=== PATIENT | female | born 1985 | race Caucasian/White ===

== ENCOUNTER 2020-08-24 21:50 | Emergency (ER) | payer MEDICARE, OTHER ==
[~2020-08-24 21:50] MED LIST: AZITHROMYCIN250 MG PO; CERTAGEN1 EACH PO; CIPRO500 MG PO; COLACE CLEAR50 MG PO; ERY-TAB250 MG PO; FEOSOL325 MG PO; FIORICET1 EACH PO; FOLIC ACID1 MG PO; HYDROXYZINE HCL50 MG PO; LOTRIMIN AF24 GM TOP; MAGNESIUM250 M1 PO; METRONIDAZOLE500 MG PO; NEURONTIN300 MG PO; NIACIN250 M1 PO; NYSTATIN-TRIAMC30 GM TOP; ONDANSETRON ODT4 MG PO; PREDNISONE 20MG20 MG PO; PREDNISONE5 M1 PO; PROTONIX 40MG T40 MG PO; PROVENTIL HFA6.7 GM INH; PULMICORT FLEX90 MCG INH; REGLAN10 MG PO; ROBAXIN750 MG PO; ROBITUSSIN100 MG/5 M PO; SINGULAIR10 MG PO; SYMBICORT 1601 PUFFS INH; SYMBICORT 80-10.2 GM INH; TIZANIDINE HCL4 MG PO; VITAMIN D3 PO; VITAMIN D5000 UNIT PO; ZOLOFT100 MG PO; ZOLOFT50 MG PO
[2020-08-24 23:00] LABS: BASOPHIL 0.8 % (0-2); EOSINOPHIL 3.6 % (0-5); HCT 40.3 % (37.0-47.0); HGB 12.9 g/dl (12.5-16.0); LYMPHOCYTE 33.4 % (15-48); MCH 28.7 pg (25.0-31.0); MCV 89.6 fL (78.0-100.0); MONOCYTE 6.2 % (0-12); MPV 10.6 fL (6.0-9.5); NEUTROPHIL 55.8 % (41-80); NRBC 0; PLT 271 K/uL (150-400); WBC 8.5 K/uL (4.0-10.5)
[2020-08-24 23:04] LABS: BILIRUBIN NEGATIVE (NEGATIVE); BLOOD NEGATIVE Ery/uL (NEGATIVE); CLARITY CLEAR (CLEAR); COLOR YELLOW (YELLOW); GLUCOSE (U) NORMAL (NORMAL); LEUKOCYTES NEGATIVE Leu/uL (NEGATIVE); NITRITE NEGATIVE (NEGATIVE); PROTEIN NEGATIVE (NEGATIVE); SPECIFIC GRAVITY >=1.030 (1.001-1.030); UROBILINOGEN 0.2 mg/dL (0.2-1.0)
[2020-08-24 23:04] LABS: PROTHROMBIN TIME 12.5 SECONDS (11.4-13.6); PTT 25.4 SECONDS (22.2-34.7)
[2020-08-24 23:10] LABS: ALBUMIN 3.6 g/dL (3.4-5.0); BILIRUBIN - TOTAL 0.9 mg/dL (0.2-1.0); CREATININE 0.62 mg/dL (0.51-0.95); GLOBULIN (CALCULATION) 3.1 g/dL; POTASSIUM 3.8 mmol/L (3.5-5.1); TOTAL PROTEIN 6.7 g/dL (6.4-8.2)
[2020-08-25] MEDS ORDERED: NORCO 5-325 TA1 EACH PO (01:35)
== END 2020-08-25 01:50 | disposition home or self-care (01) ==
LOC: FER 21:50
PROVIDERS: Emergency Medicine Emergency Medical Services
DX: R07.89 Other chest pain (principal); M54.5 Low back pain; K43.9 Ventral hernia without obstruction or gangrene; R06.02 Shortness of breath; Z88.0 Allergy status to penicillin
CPT/HCPCS: 36415; 71045; 80053; 81003; 84484; 85025; 85610; 85730; 93005; J1885

== ENCOUNTER 2020-09-09 10:23 | Emergency (ER) | payer MEDICARE, OTHER ==
[~2020-09-09 10:23] MED LIST changes: +NORCO 5-325 TA1 EACH PO
[2020-09-09] MEDS ORDERED: MEDROL 4MG DOSEP4 MG PO (11:21)
[2020-09-09] MEDS ORDERED: NORCO 5-325 TA1 EACH PO (11:21)
== END 2020-09-09 11:50 | disposition home or self-care (01) ==
LOC: FER 10:23
DX: M54.5 Low back pain (principal); J44.9 Chronic obstructive pulmonary disease, unspecified; E66.9 Obesity, unspecified; Z88.0 Allergy status to penicillin; Z88.2 Allergy status to sulfonamides; Z88.8 Allergy status to other drugs, medicaments and biological substances
CPT/HCPCS: 99283; J1170

== ENCOUNTER 2020-09-12 08:23 | Emergency (ER) | payer MEDICARE, OTHER ==
[~2020-09-12 08:23] MED LIST changes: +MEDROL 4MG DOSEP4 MG PO
[2020-09-12 11:01] LABS: BASOPHIL 0.7 % (0-2); EOSINOPHIL 1.2 % (0-5); HCT 38.9 % (37.0-47.0); HGB 12.3 g/dl (12.5-16.0); LYMPHOCYTE 42.6 % (15-48); MCH 28.7 pg (25.0-31.0); MCHC 31.6 g/dL (32.0-36.0); MCV 90.9 fL (78.0-100.0); MONOCYTE 6.7 % (0-12); MPV 10.1 fL (6.0-9.5); NRBC 0; PLT 238 K/uL (150-400); RBC 4.28 M/uL (4.20-5.40); RDW 13.9 % (11.5-14.0); WBC 8.9 K/uL (4.0-10.5)
[2020-09-12 11:28] LABS: ALBUMIN 3.6 g/dL (3.4-5.0); BILIRUBIN - TOTAL 0.8 mg/dL (0.2-1.0); BUN/CREAT RATIO (CALC) 23.9 RATIO; CREATININE 0.67 mg/dL (0.51-0.95); GLOBULIN (CALCULATION) 3.3 g/dL; POTASSIUM 3.9 mmol/L (3.5-5.1); TOTAL PROTEIN 6.9 g/dL (6.4-8.2)
[2020-09-12] MEDS ORDERED: ROBAXIN750 MG PO (13:24)
== END 2020-09-12 13:58 | disposition home or self-care (01) ==
LOC: FER 08:23
PROVIDERS: Emergency Medicine
DX: M54.5 Low back pain (principal); N83.201 Unspecified ovarian cyst, right side; N83.292 Other ovarian cyst, left side; K21.9 Gastro-esophageal reflux disease without esophagitis; J44.9 Chronic obstructive pulmonary disease, unspecified; Z98.890 Other specified postprocedural states; Z90.49 Acquired absence of other specified parts of digestive tract; Z79.899 Other long term (current) drug therapy
CPT/HCPCS: 36415; 72131; 76856; 80053; 84484; 85025; 93005; J1170; J2405

== ENCOUNTER 2020-12-13 08:27 | Emergency (ER) | payer MEDICARE, OTHER ==
[2020-12-13 09:54] LABS: BASOPHIL 0.5 % (0-2); EOSINOPHIL 2.4 % (0-5); HCT 36.2 % (37.0-47.0); HGB 11.8 g/dl (12.5-16.0); LYMPHOCYTE 24.9 % (15-48); MCH 28.9 pg (25.0-31.0); MCHC 32.6 g/dL (32.0-36.0); MCV 88.7 fL (78.0-100.0); MONOCYTE 12.6 % (0-12); MPV 10.7 fL (6.0-9.5); NEUTROPHIL 59.3 % (41-80); NRBC 0; PLT 206 K/uL (150-400); RBC 4.08 M/uL (4.20-5.40); RDW 14.4 % (11.5-14.0); WBC 5.8 K/uL (4.0-10.5)
[2020-12-13 10:17] LABS: BILIRUBIN - TOTAL 1.4 mg/dL (0.2-1.0); CREATININE 0.54 mg/dL (0.51-0.95); POTASSIUM 4.2 mmol/L (3.5-5.1)
[2020-12-13 10:18] LABS: ALBUMIN 3.5 g/dL (3.4-5.0); MAGNESIUM 1.7 mg/dL (1.8-2.4); TOTAL PROTEIN 6.5 g/dL (6.4-8.2)
[2020-12-13 10:19] LABS: PRO-BNP 15 pg/mL (<125)
[2020-12-13] MEDS ORDERED: PREDNISONE20 MG PO (11:59)
== END 2020-12-13 12:17 | disposition home or self-care (01) ==
LOC: FER 08:27
PROVIDERS: Emergency Medicine
DX: J44.1 Chronic obstructive pulmonary disease with (acute) exacerbation (principal); Z88.0 Allergy status to penicillin; Z88.2 Allergy status to sulfonamides; Z88.1 Allergy status to other antibiotic agents; Z88.8 Allergy status to other drugs, medicaments and biological substances; Z91.013 Allergy to seafood; Z91.010 Allergy to peanuts; Z91.011 Allergy to milk products; Z91.018 Allergy to other foods
CPT/HCPCS: 36415; 71046; 80053; 83735; 83880; 84145; 84484; 85025; 93005; J2930

== ENCOUNTER 2021-04-11 09:23 | Emergency (ER) | payer MEDICARE, OTHER ==
[~2021-04-11 09:23] MED LIST changes: +PREDNISONE20 MG PO
[2021-04-11 10:12] LABS: BASOPHIL 0.4 % (0-2); EOSINOPHIL 0 % (0-5); HCT 38.3 % (37.0-47.0); HGB 12.6 g/dl (12.5-16.0); LYMPHOCYTE 31.1 % (15-48); MCH 28.6 pg (25.0-31.0); MCHC 32.9 g/dL (32.0-36.0); MCV 86.8 fL (78.0-100.0); MONOCYTE 10.3 % (0-12); MPV 10.5 fL (6.0-9.5); NEUTROPHIL 57.8 % (41-80); NRBC 0; PLT 158 K/uL (150-400); RBC 4.41 M/uL (4.20-5.40); RDW 13.7 % (11.5-14.0); WBC 2.7 K/uL (4.0-10.5)
[2021-04-11 10:33] LABS: ALBUMIN 3.4 g/dL (3.4-5.0); BILIRUBIN - TOTAL 0.8 mg/dL (0.2-1.0); BUN/CREAT RATIO (CALC) 9.2 RATIO; CREATININE 0.76 mg/dL (0.51-0.95); GLOBULIN (CALCULATION) 3.5 g/dL; POTASSIUM 3.2 mmol/L (3.5-5.1); PRO-BNP 14 pg/mL (<125); TOTAL PROTEIN 6.9 g/dL (6.4-8.2)
[2021-04-11] MEDS ORDERED: ONDANSETRON ODT4 MG PO (14:09)
[2021-04-11] MEDS ORDERED: PREDNISONE 20MG20 MG PO (14:09)
== END 2021-04-11 15:40 | disposition home or self-care (01) ==
LOC: FER 09:23
PROVIDERS: Internal Medicine
DX: U07.1 COVID-19 (principal); J44.9 Chronic obstructive pulmonary disease, unspecified; E87.6 Hypokalemia; Z23 Encounter for immunization; Z88.0 Allergy status to penicillin; Z88.1 Allergy status to other antibiotic agents; Z88.2 Allergy status to sulfonamides; Z91.041 Radiographic dye allergy status; Z91.018 Allergy to other foods; Z91.011 Allergy to milk products; Z91.013 Allergy to seafood
CPT/HCPCS: 36415; 36600; 71045; 80053; 82803; 83605; 83880; 84145; 84484; 85025; 85379; 93005; 94640; 94664; J1100; J2405; J3480; J7040; M0243; Q0244

== ENCOUNTER 2021-05-27 03:30 | Inpatient (IN) | payer MEDICARE, OTHER ==
[~2021-05-27] VITALS: Ht 154.9 cm; Wt 108.1 kg
[2021-05-27 03:48] LABS: BASOPHIL 0.5 % (0-2); EOSINOPHIL 0.1 % (0-5); LYMPHOCYTE 7.2 % (15-48); MCH 28.8 pg (25.0-31.0); MCHC 32.5 g/dL (32.0-36.0); MCV 88.5 fL (78.0-100.0); MONOCYTE 3.1 % (0-12); NEUTROPHIL 88.8 % (41-80); NRBC 0; PLT 259 K/uL (150-400); RBC 4.52 M/uL (4.20-5.40); RDW 14.7 % (11.5-14.0); WBC 10.5 K/uL (4.0-10.5)
[2021-05-27 04:04] LABS: ALBUMIN 3.6 g/dL (3.4-5.0); BILIRUBIN - TOTAL 0.9 mg/dL (0.2-1.0); BUN/CREAT RATIO (CALC) 12.1 RATIO; CREATININE 0.58 mg/dL (0.51-0.95); GLOBULIN (CALCULATION) 4.2 g/dL; POTASSIUM 4.3 mmol/L (3.5-5.1); TOTAL PROTEIN 7.8 g/dL (6.4-8.2)
[2021-05-27 04:09] LABS: LACTIC ACID 3.3 mmol/L (0.4-1.9)
[2021-05-27 04:18] LABS: BILIRUBIN NEGATIVE (NEGATIVE); BLOOD NEGATIVE Ery/uL (NEGATIVE); CLARITY CLEAR (CLEAR); COLOR YELLOW (YELLOW); GLUCOSE (U) 3+ mg/dL (NORMAL); LEUKOCYTES NEGATIVE Leu/uL (NEGATIVE); NITRITE NEGATIVE (NEGATIVE); PROTEIN NEGATIVE (NEGATIVE); UROBILINOGEN 0.2 mg/dL (0.2-1.0)
[2021-05-27 04:35] LABS: CORONAVIRUS 2019 SARS-COV-2 NEGATIVE (NEGATIVE); INFLUENZA A NAA NEGATIVE (NEGATIVE)
[2021-05-27] MEDS ORDERED: BUSPAR5 MG PO (08:22)
[2021-05-28 01:16] LABS: LDH 176 U/L (81-234)
[2021-05-28 06:01] LABS: BASOPHIL 0.4 % (0-2); EOSINOPHIL 0.1 % (0-5); HCT 32.9 % (37.0-47.0); HGB 10.4 g/dl (12.5-16.0); LYMPHOCYTE 11.7 % (15-48); MCH 28.7 pg (25.0-31.0); MCHC 31.6 g/dL (32.0-36.0); MCV 90.6 fL (78.0-100.0); MONOCYTE 5.5 % (0-12); MPV 10.3 fL (6.0-9.5); NEUTROPHIL 80.9 % (41-80); NRBC 0; PLT 261 K/uL (150-400); RBC 3.63 M/uL (4.20-5.40); RDW 15.4 % (11.5-14.0); WBC 11.4 K/uL (4.0-10.5)
[2021-05-28 06:35] LABS: BILIRUBIN - TOTAL 0.7 mg/dL (0.2-1.0); BUN/CREAT RATIO (CALC) 23.9 RATIO; CREATININE 0.46 mg/dL (0.51-0.95); GLOBULIN (CALCULATION) 3.2 g/dL; POTASSIUM 4.1 mmol/L (3.5-5.1); TOTAL PROTEIN 6.2 g/dL (6.4-8.2)
[2021-05-30] MEDS ORDERED: PREDNISONE 10MG10 MG PO (17:50)
[2021-05-30] MEDS ORDERED: TIZANIDINE HCL2 MG PO (17:50)
[2021-05-30] MEDS ORDERED: LEVAQUIN750 MG PO (17:50)
== END 2021-05-30 18:15 | disposition home or self-care (01) | DRG 871 ==
LOC: FER 03:30 → FMS 05:26
PROVIDERS: Emergency Medicine; Nurse Practitioner; ADMIT Internal Medicine
PROC: 8E0ZXY6 Isolation (ICD-10-PCS; principal; 2021-05-28)
PROC: XW033E5 Introduction of Remdesivir Anti-infective into Peripheral Vein, Percutaneous Approach, New Technology Group 5 (ICD-10-PCS; 2021-05-28)
DX: A41.89 Other specified sepsis (principal); U07.1 COVID-19; J12.82 Pneumonia due to coronavirus disease 2019; J18.9 Pneumonia, unspecified organism; J96.01 Acute respiratory failure with hypoxia; E87.2 Acidosis; Z68.42 Body mass index [BMI] 45.0-49.9, adult; J44.1 Chronic obstructive pulmonary disease with (acute) exacerbation; E66.01 Morbid (severe) obesity due to excess calories; R65.20 Severe sepsis without septic shock; G47.33 Obstructive sleep apnea (adult) (pediatric); J01.90 Acute sinusitis, unspecified; R73.9 Hyperglycemia, unspecified; T38.0X5A Adverse effect of glucocorticoids and synthetic analogues, initial encounter; I10 Essential (primary) hypertension; M62.838 Other muscle spasm; K21.9 Gastro-esophageal reflux disease without esophagitis; E78.5 Hyperlipidemia, unspecified; G62.9 Polyneuropathy, unspecified; M79.7 Fibromyalgia; K22.70 Barrett's esophagus without dysplasia; Z79.51 Long term (current) use of inhaled steroids; Z79.899 Other long term (current) drug therapy; Z88.1 Allergy status to other antibiotic agents; Z88.2 Allergy status to sulfonamides; Z88.7 Allergy status to serum and vaccine; Z88.0 Allergy status to penicillin; Z88.8 Allergy status to other drugs, medicaments and biological substances; Z91.012 Allergy to eggs; Z91.011 Allergy to milk products; Z91.013 Allergy to seafood; Z91.010 Allergy to peanuts; Z91.018 Allergy to other foods; Z90.49 Acquired absence of other specified parts of digestive tract; Z98.890 Other specified postprocedural states; Z83.3 Family history of diabetes mellitus; Z82.5 Family history of asthma and other chronic lower respiratory diseases; Z86.73 Personal history of transient ischemic attack (TIA), and cerebral infarction without residual deficits
CPT/HCPCS: 36415; 36600; 71045; 71250; 80053; 80202; 81003; 82728; 82803; 82962; 83036; 83605; 83615; 83880; 84145; 84484; 85025; 85379; 87040; 87070; 87205; 93005; 94010; 94640; 94664; C9399; J1644; J1650; J2930; J3370; J3475; J3490; J7030; J7040; J7050; J8540; U0002

== ENCOUNTER 2021-08-12 09:23 | Emergency (ER) | payer MEDICARE, OTHER ==
[~2021-08-12 09:23] MED LIST changes: +BUSPAR5 MG PO; +LEVAQUIN750 MG PO; +PREDNISONE 10MG10 MG PO; +TIZANIDINE HCL2 MG PO
[2021-08-12 10:18] LABS: BASOPHIL 0.3 % (0-2); EOSINOPHIL 0.8 % (0-5); HCT 43.9 % (37.0-47.0); HGB 14.1 g/dl (12.5-16.0); LYMPHOCYTE 10.9 % (15-48); MCH 27.8 pg (25.0-31.0); MCHC 32.1 g/dL (32.0-36.0); MCV 86.4 fL (78.0-100.0); MPV 10.1 fL (6.0-9.5); NEUTROPHIL 81.7 % (41-80); NRBC 0; PLT 278 K/uL (150-400); RBC 5.08 M/uL (4.20-5.40); RDW 14.1 % (11.5-14.0); WBC 13.2 K/uL (4.0-10.5)
[2021-08-12 10:33] LABS: BILIRUBIN - TOTAL 1.5 mg/dL (0.2-1.0); BUN/CREAT RATIO (CALC) 18.2 RATIO; CREATININE 0.55 mg/dL (0.51-0.95); GLOBULIN (CALCULATION) 3.6 g/dL; POTASSIUM 4.2 mmol/L (3.5-5.1); TOTAL PROTEIN 7.6 g/dL (6.4-8.2)
[2021-08-12 13:52] LABS: BILIRUBIN NEGATIVE (NEGATIVE); BLOOD NEGATIVE Ery/uL (NEGATIVE); CLARITY CLEAR (CLEAR); COLOR YELLOW (YELLOW); GLUCOSE (U) NORMAL (NORMAL); LEUKOCYTES NEGATIVE Leu/uL (NEGATIVE); NITRITE NEGATIVE (NEGATIVE); PROTEIN NEGATIVE (NEGATIVE); SPECIFIC GRAVITY >=1.030 (1.001-1.030); UROBILINOGEN 0.2 mg/dL (0.2-1.0)
[2021-08-12] MEDS ORDERED: ONDANSETRON ODT4 MG PO (15:32)
== END 2021-08-12 15:53 | disposition home or self-care (01) ==
LOC: FER 09:23
PROVIDERS: Emergency Medicine
DX: K31.84 Gastroparesis (principal); F17.200 Nicotine dependence, unspecified, uncomplicated
CPT/HCPCS: 36415; 80053; 81003; 82150; 83690; 85025; C9113; J1170; J1200; J2405

== ENCOUNTER 2021-10-26 10:13 | Emergency (ER) | payer MEDICARE, OTHER ==
[2021-10-26 11:40] LABS: BASOPHIL 0.3 % (0-2); EOSINOPHIL 0.5 % (0-5); HGB 14.7 g/dl (12.5-16.0); MCH 29.1 pg (25.0-31.0); MCV 90.9 fL (78.0-100.0); MONOCYTE 6.4 % (0-12); MPV 10.3 fL (6.0-9.5); NEUTROPHIL 85.4 % (41-80); NRBC 0; PLT 293 K/uL (150-400); RBC 5.06 M/uL (4.20-5.40); RDW 14.4 % (11.5-14.0); WBC 15.1 K/uL (4.0-10.5)
[2021-10-26 12:00] LABS: ALBUMIN 4.3 g/dL (3.4-5.0); BILIRUBIN - TOTAL 1.4 mg/dL (0.2-1.0); BUN/CREAT RATIO (CALC) 15.5 RATIO; CREATININE 0.71 mg/dL (0.51-0.95); POTASSIUM 5.4 mmol/L (3.5-5.1); TOTAL PROTEIN 8.3 g/dL (6.4-8.2)
[2021-10-26 12:29] LABS: LACTIC ACID 2.1 mmol/L (0.4-1.9)
[2021-10-26 14:32] LABS: BILIRUBIN NEGATIVE (NEGATIVE); BLOOD NEGATIVE Ery/uL (NEGATIVE); CLARITY CLEAR (CLEAR); COLOR YELLOW (YELLOW); GLUCOSE (U) NORMAL (NORMAL); LEUKOCYTES NEGATIVE Leu/uL (NEGATIVE); NITRITE NEGATIVE (NEGATIVE); PROTEIN NEGATIVE (NEGATIVE); SPECIFIC GRAVITY >=1.030 (1.001-1.030); UROBILINOGEN 0.2 mg/dL (0.2-1.0); pH 5.5 (5.0-9.0)
[2021-10-26] MEDS ORDERED: ONDANSETRON ODT4 MG PO (14:34)
[2021-10-26] MEDS ORDERED: PEPCID AC20 MG PO (14:34)
== END 2021-10-26 15:07 | disposition home or self-care (01) ==
LOC: FER 10:13
PROVIDERS: Emergency Medicine
DX: B34.9 Viral infection, unspecified (principal); J44.9 Chronic obstructive pulmonary disease, unspecified; E66.01 Morbid (severe) obesity due to excess calories; Z28.310 Unvaccinated for COVID-19; Z88.0 Allergy status to penicillin; Z88.1 Allergy status to other antibiotic agents; Z88.2 Allergy status to sulfonamides; Z91.041 Radiographic dye allergy status; Z91.012 Allergy to eggs; Z91.013 Allergy to seafood; Z91.018 Allergy to other foods
CPT/HCPCS: 36415; 80053; 81003; 83605; 83690; 84145; 85025; 93005; J1170; J2405; J7030

== ENCOUNTER 2022-01-08 08:48 | Emergency (ER) | payer MEDICARE, OTHER ==
[~2022-01-08 08:48] MED LIST changes: +PEPCID AC20 MG PO
[2022-01-08] MEDS ORDERED: LEVAQUIN500 MG PO (11:11)
== END 2022-01-08 11:27 | disposition home or self-care (01) ==
LOC: FER 08:48
DX: J44.9 Chronic obstructive pulmonary disease, unspecified (principal); Z91.012 Allergy to eggs; Z20.822 Contact with and (suspected) exposure to COVID-19; Z28.310 Unvaccinated for COVID-19
CPT/HCPCS: 71046; 93005; U0002

== ENCOUNTER 2022-01-08 19:45 | Emergency (ER) | payer MEDICARE, OTHER ==
[~2022-01-08 19:45] MED LIST changes: +LEVAQUIN500 MG PO
[2022-01-08 20:13] LABS: BASOPHIL 0.6 % (0-2); HCT 37.5 % (37.0-47.0); LYMPHOCYTE 18.4 % (15-48); MCH 28.4 pg (25.0-31.0); MCV 88.9 fL (78.0-100.0); MONOCYTE 9.4 % (0-12); MPV 9.7 fL (6.0-9.5); NEUTROPHIL 67.3 % (41-80); NRBC 0; PLT 231 K/uL (150-400); RBC 4.22 M/uL (4.20-5.40); RDW 14.6 % (11.5-14.0); WBC 7.3 K/uL (4.0-10.5)
[2022-01-08 20:38] LABS: ALBUMIN 3.8 g/dL (3.4-5.0); BILIRUBIN - TOTAL 1.2 mg/dL (0.2-1.0); BUN/CREAT RATIO (CALC) 10.7 RATIO; CREATININE 0.56 mg/dL (0.51-0.95); GLOBULIN (CALCULATION) 3.1 g/dL; POTASSIUM 3.4 mmol/L (3.5-5.1); TOTAL PROTEIN 6.9 g/dL (6.4-8.2)
== END 2022-01-08 23:08 | disposition home or self-care (01) ==
LOC: FER 19:45
PROVIDERS: Emergency Medicine
DX: R07.89 Other chest pain (principal); R06.02 Shortness of breath; R00.0 Tachycardia, unspecified; J44.9 Chronic obstructive pulmonary disease, unspecified; Z88.7 Allergy status to serum and vaccine; Z86.16 Personal history of COVID-19; Z28.310 Unvaccinated for COVID-19
CPT/HCPCS: 36415; 71275; 80053; 84443; 84484; 85025; 85379; 93005; J1885; J2930; J7030; Q9967